=== PATIENT | male | born 1970 ===

== ENCOUNTER 2017-03-26 11:25 | Emergency (ER) | payer BC, OTHER ==
[2017-03-26 11:50] VITALS: RESP 18; BMI 32.1
--- NOTE | 2017-03-26 12:39 | RAD ---
PROCEDURE: Radiographs of the Lumbar Spine. HISTORY: Back pain, fall COMPARISON: No prior. FINDINGS: BONES: There is mild dextrocurvature in the lumbar spine which may be positional. There is normal alignment of the lumbar vertebral bodies. There is normal lumbar lordosis. There is no acute fracture or spondylolisthesis. There is an apparent lucency in the pars interarticularis at L5. DISC SPACES: Mild degenerative disc disease at L5-S1 with mild reduced disc height and facet arthropathy. The remaining disc heights are maintained. OTHER FINDINGS: Large amount of stool in the colon consistent with constipation. IMPRESSION: 1. No acute fracture. 2. Apparent lucency at L5 pars interarticularis may represent spondylolysis, dedicated oblique radiographs are recommended for further evaluation. 3. Mild degenerative disc disease at L5-S1.
--- NOTE | 2017-03-26 13:14 | C.PDOC ---
Time Seen by Provider: 03/26/17 11:43 Chief Complaint (Nursing): Back Pain Past Medical History Vital Signs: Last Vital Signs Temp 98.6 F 03/26/17 11:34 Pulse 97 H 03/26/17 11:34 Resp 18 03/26/17 11:34 BP 133/86 03/26/17 11:34 Pulse Ox 96 03/26/17 11:34 - Medical History PMH: Bipolar Disorder, HTN, Hypercholesterolemia - Social History Hx Alcohol Use: No Hx Substance Use: No - Immunization History Hx Tetanus Toxoid Vaccination: No Hx Influenza Vaccination: No Hx Pneumococcal Vaccination: No ED Course And Treatment O2 Sat by Pulse Oximetry: 96 (RA) Pulse Ox Interpretation: Normal - Other Rad LS spine X-Ray: Viewed By Me, Read By Radiologist Interpretation: PROCEDURE: Radiographs of the Lumbar Spine. HISTORY: Back pain, fall. COMPARISON: No prior. FINDINGS: BONES: There is mild dextrocurvature in the lumbar spine which may be positional. There is normal alignment of the lumbar vertebral bodies. There is normal lumbar lordosis. There is no acute fracture or spondylolisthesis. There is an apparent lucency in the pars interarticularis at L5. DISC SPACES: Mild degenerative disc disease at L5-S1 with mild reduced disc height and facet arthropathy. The remaining disc heights are maintained. OTHER FINDINGS: Large amount of stool in the colon consistent with constipation. IMPRESSION: 1. No acute fracture. 2. Apparent lucency at L5 pars interarticularis may represent spondylolysis, dedicated oblique radiographs are recommended for further evaluation. 3. Mild degenerative disc disease at L5-S1. Progress Note: LS spine ordered and reviewed. Pt was given Toradol IM for pain. On reassessment, patient is resting comfortably, with improvement of back pain. Patient remains afebrile, with no bony tenderness, extremity numbness or weakness, or abdominal pain. Patient is ambulatory in the emergency department with no signs of discomfort. Patient was advised to follow up with physician/ clinic in 1-2 days. Disposition - Disposition - PA / METALLOGRAPHIC TECHNICIAN / Resident Statement MD/DO has reviewed & agrees with the documentation as recorded. - Scribe Statement The provider has reviewed the documentation as recorded by the Hiltone Erica Dumont All medical record entries made by the Maggieibe were at my direction and personally dictated by me. I have reviewed the chart and agree that the record accurately reflects my personal performance of the history, physical exam, medical decision making, and the department course for this patient. I have also personally directed, reviewed, and agree with the discharge instructions and disposition.
--- NOTE | 2017-03-26 13:16 | C.PDOC ---
History Of Present Illness 46 year old male, with past medical history of chronic back pain, presents to ED for evaluation of lower back pains s/p fall at work yesterday. Pt states he fell backwards and slipped down 3 steps of stairs yesterday injuring his lower back. Denies taking any medications for pain. Otherwise, denies numbness, weakness, or tingling sensation to lower extremities. Denies fever, abdominal pain, bowel/bladder incontinence, dysuria, hematuria, urinary frequency/ retention. Time Seen by Provider: 03/26/17 11:43 Chief Complaint (Nursing): Back Pain History Per: Patient History/Exam Limitations: no limitations Onset/Duration Of Symptoms: Days Current Symptoms Are (Timing): Still Present Quality Of Discomfort: "Pain" Previous Symptoms: Prior Injury Associated Symptoms: None. denies: Incontinence, New Weakness, New Numbness Exacerbating Factor(s): Nothing Recent travel outside of the [place]: No Additional History Per: Patient Past Medical History Reviewed: Historical Data, Nursing Documentation, Vital Signs Vital Signs: Last Vital Signs Temp 98.1 F 03/26/17 13:48 Pulse 98 H 03/26/17 13:48 Resp 18 03/26/17 13:48 BP 134/80 03/26/17 13:48 Pulse Ox 97 03/26/17 13:48 - Medical History PMH: Bipolar Disorder, HTN, Hypercholesterolemia Family History: States: Unknown Family Hx - Social History Hx Alcohol Use: No Hx Substance Use: No - Immunization History Hx Tetanus Toxoid Vaccination: No Hx Influenza Vaccination: No Hx Pneumococcal Vaccination: No Review Of Systems Except As Marked, All Systems Reviewed And Found Negative. Constitutional: Negative for: Fever, Chills Gastrointestinal: Negative for: Nausea, Vomiting, Abdominal Pain Genitourinary: Negative for: Dysuria, Frequency, Incontinence, Hematuria Musculoskeletal: Positive for: Back Pain. Negative for: Neck Pain Neurological: Negative for: Weakness, Numbness, Headache Physical Exam - Physical Exam Appears: Non-toxic, No Acute Distress Skin: Normal Color, Warm, Dry Head: Atraumatic, Normacephalic Eye(s): bilateral: Normal Inspection Oral Mucosa: Moist Neck: Normal ROM, Supple Chest: Symmetrical Cardiovascular: Rhythm Regular Respiratory: No Accessory Muscle Use Gastrointestinal/Abdominal: Soft, No Tenderness Back: No CVA Tenderness, No Vertebral Tenderness, Paraspinal Tenderness ( bilateral paralumbar), No Other (no hematoma, ecchymosis, or erythema to back) Extremity: Normal ROM, No Deformity Neurological/Psych: Oriented x3, Normal Speech, Normal Motor, Normal Sensation Gait: Steady ED Course And Treatment O2 Sat by Pulse Oximetry: 96 (RA) Pulse Ox Interpretation: Normal - Other Rad LS spine X-Ray: Viewed By Me, Read By Radiologist Interpretation: PROCEDURE: Radiographs of the Lumbar Spine. HISTORY: Back pain, fall. COMPARISON: No prior. FINDINGS: BONES: There is mild dextrocurvature in the lumbar spine which may be positional. There is normal alignment of the lumbar vertebral bodies. There is normal lumbar lordosis. There is no acute fracture or spondylolisthesis. There is an apparent lucency in the pars interarticularis at L5. DISC SPACES: Mild degenerative disc disease at L5-S1 with mild reduced disc height and facet arthropathy. The remaining disc heights are maintained. OTHER FINDINGS: Large amount of stool in the colon consistent with constipation. IMPRESSION: 1. No acute fracture. 2. Apparent lucency at L5 pars interarticularis may represent spondylolysis, dedicated oblique radiographs are recommended for further evaluation. 3. Mild degenerative disc disease at L5-S1. Progress Note: LS spine ordered and reviewed. Pt was given Toradol IM for pain. On reassessment, patient is resting comfortably, with improvement of back pain. Patient remains afebrile, with no bony tenderness, extremity numbness or weakness, or abdominal pain. Patient is ambulatory in the emergency department with no signs of discomfort. Patient was advised to follow up with physician/ clinic in 1-2 days. Disposition Counseled Patient/Family Regarding: Diagnosis, Need For Followup, Rx Given - Disposition Referrals: Les Redmond MD [Staff Provider] - Disposition: HOME/ ROUTINE Disposition Time: 13:13 Condition: STABLE Additional Instructions: Please follow up with PMD Take meds as prescribed Return to ER if worse Prescriptions: Ibuprofen [Motrin Tab] 800 mg PO QID #20 tab Polyethylene Glycol 3350 [Miralax] 17 g PO DAILY PRN #1 bottle PRN Reason: Constipation Instructions: Constipation (ED), Contusion in Adults (ED) Forms: [employer] (Urdu) - Clinical Impression Clinical Impression: Contusion of lower back - PA / BUSINESS SALES CONSULTANT / Resident Statement MD/DO has reviewed & agrees with the documentation as recorded. - Scribe Statement The provider has reviewed the documentation as recorded by the Scribe Erica Dumont All medical record entries made by the Maggieibirvin were at my direction and personally dictated by me. I have reviewed the chart and agree that the record accurately reflects my personal performance of the history, physical exam, medical decision making, and the department course for this patient. I have also personally directed, reviewed, and agree with the discharge instructions and disposition.
[2017-03-26 13:49] VITALS: BP 134/80; PULSE 98; TEMP 98.1
[2017-03-26 15:13] VITALS: O2SAT 96
== END 2017-03-26 13:49 | disposition home or self-care (01) ==
LOC: C.ER 11:25
DX: S30.0XXA Contusion of lower back and pelvis, initial encounter (principal); W10.8XXA Fall (on) (from) other stairs and steps, initial encounter; Y92.89 Other specified places as the place of occurrence of the external cause; Y99.8 Other external cause status
CPT/HCPCS: 72100; 96372; 99284; J1885